=== PATIENT | male | born 1935 | race Two or more races ===

== ENCOUNTER 2020-04-23 15:29 | Outpatient (CLI) | payer OTHER | END 2020-04-23 17:22 | disposition home or self-care (01) | LOC: OFIC 805 15:29 | PROVIDERS: ATTEND Otolaryngology Otology & Neurotology | DX: H69.03 Patulous Eustachian tube, bilateral (principal); H90.3 Sensorineural hearing loss, bilateral; J31.0 Chronic rhinitis ==